=== PATIENT | male | born 1945 | race Caucasian/White ===

== ENCOUNTER → 2021-02-24 | Outpatient (CLI) | payer MEDICARE, OTHER ==
--- NOTE | 2021-02-24 12:04 | REP ---
INDICATION: SHORTNESS OF BREATH. COMPARISON: None. FINDINGS: There is mild cardiomegaly. Lung arriaga are clear. The pleural angles are sharp. The osseous structures are within normal limits for the patient's age. There are spinal degenerative changes. IMPRESSION: Mild cardiomegaly without evidence of acute cardiopulmonary disease. <Electronically signed by Seven Alaniz > 02/24/21 [id number]
== END ==
LOC: M WUC 11:06
PROVIDERS: ATTEND Nurse Practitioner Adult Health
DX: R06.02 Shortness of breath (principal)